=== PATIENT | female | born 2005 | race African-American/Black ===

== ENCOUNTER 2024-12-13 19:41 | Emergency (ER) | payer SELFPAY, OTHER ==
[~2024-12-13] VITALS: Ht 157.5 cm; Wt 63.6 kg
[2024-12-13 19:46] VITALS: TEMP 99.1
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
[2024-12-13 20:29] VITALS: BP 121/76
[2024-12-13 20:30] VITALS: PULSE 82; RESP 18; O2SAT 96
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
== END 2024-12-13 21:00 | disposition left against medical advice (07) ==
LOC: EDBD 19:41 → ER 19:41
DX: M54.9 Dorsalgia, unspecified (principal); R51.9 Headache, unspecified; V89.2XXA Person injured in unspecified motor-vehicle accident, traffic, initial encounter; Y93.I9 Activity, other involving external motion; Y92.488 Other paved roadways as the place of occurrence of the external cause; Y99.8 Other external cause status
CPT/HCPCS: 70450; 71250; 72125; 72128; 72131; 74176